=== PATIENT | male | born 1985 ===

== ENCOUNTER 2017-10-03 14:17 | Emergency (ER) | payer OTHER ==
[2017-10-03 14:32] VITALS: TEMP 98.8; O2SAT 100
[2017-10-03] MEDS ORDERED: Iohexol 240 (50 ml) PO STA (14:56)
--- NOTE | 2017-10-03 15:04 | ED PDOC ---
HPI: Abdomen Time Seen by Provider: 10/03/17 14:45 Chief Complaint (Nursing): Abdominal Pain Chief Complaint (Provider): abdominal pain History Per: Patient History/Exam Limitations: no limitations Onset/Duration Of Symptoms: Days (2 weeks), Gradual, Persistent Location Of Pain/Discomfort: RLQ (radiating to back and RIGHT groin) Quality Of Discomfort: Dull, Aching, "Pain" Associated Symptoms: Nausea, Loss Of Appetite, Back Pain, Other (gets full easily). denies: Fever, Chills, Vomiting, Diarrhea, Constipation, Urinary Symptoms Exacerbating Factors: Supine, Food (and fluids) Alleviating Factors: None Last Bowel Movement: Yesterday Past Medical History Reviewed: Historical Data, Nursing Documentation, Vital Signs Vital Signs: Last Vital Signs Temp 98.8 F 10/03/17 14:30 Pulse 82 10/03/17 18:25 Resp 14 10/03/17 18:25 BP 128/76 10/03/17 18:25 Pulse Ox 100 10/03/17 19:24 - Medical History PMH: No Chronic Diseases - Surgical History Surgical History: No Surg Hx - Family History Family History: States: Diabetes, Other Other Family History: Father prostate cancer - Social History Current smoker - smoking cessation education provided: No Alcohol: Occasional Drugs: Denies - Immunization History Hx Tetanus Toxoid Vaccination: No - Home Medications Home Medications: Ambulatory Orders Medication Instructions Recorded Cephalexin [Keflex] 500 mg PO BID #14 cap 04/16/16 oxyCODONE/Acetaminophen [Percocet 1 ea PO Q6 PRN #12 tab 04/16/16 5/325 mg Tab] - Allergies Allergies/Adverse Reactions: Allergies Allergy/AdvReac Type Severity Reaction Status Date / Time avocado Allergy RASH Verified 10/03/17 14:29 banana Allergy RASH Verified 10/03/17 14:29 Iodinated Contrast- Oral and Allergy SHORTNESS Verified 10/03/17 19:23 IV Dye OF BREATH shellfish derived Allergy RASH Verified 10/03/17 14:29 shrimp Allergy SWELLING Verified 10/03/17 14:28 Review of Systems ROS Statement: Except As Marked, All Systems Reviewed And Found Negative (and as per HPI) Gastrointestinal: Positive for: Nausea, Abdominal Pain. Negative for: Vomiting , Diarrhea, Constipation, Melena, Hematochezia, Hematemesis, Rectal Pain Genitourinary Male: Negative for: Dysuria, Frequency, Hematuria, Scrotal Pain Musculoskeletal: Positive for: Back Pain Physical Exam - Reviewed Nursing Documentation Reviewed: Yes Vital Signs Reviewed: Yes - Physical Exam Appears: Positive for: Non-toxic, In Acute Distress (mild painful) Head Exam: Positive for: ATRAUMATIC, NORMOCEPHALIC Skin: Positive for: Warm, Dry Eye Exam: Positive for: EOMI, PERRL ENT: Positive for: Pharynx Is (clear), Other (mucus membranes moist) Neck: Positive for: Painless ROM, Supple Cardiovascular/Chest: Positive for: Regular Rate, Rhythm. Negative for: Murmur Respiratory: Positive for: Normal Breath Sounds. Negative for: Respiratory Distress Gastrointestinal/Abdominal: Positive for: Bowel Sounds (hypoactive), Soft, Tenderness (suprapubic and RLQ). Negative for: Mass, Distended, Guarding, Rebound Back: Positive for: Normal Inspection. Negative for: L CVA Tenderness, R CVA Tenderness, Decreased ROM Extremity: Positive for: Normal ROM. Negative for: Deformity Lymphatic: Negative for: Adenopathy Neurologic/Psych: Positive for: Alert. Negative for: Motor/Sensory Deficits - Laboratory Results Result Diagrams: 10/03/17 16:07 10/03/17 16:07 - ECG O2 Sat by Pulse Oximetry: 100 - Progress ED Course And Treament: No clinically significant lab abnormalities Accession No. : [id number] Patient Name / ID : ALISHA MCKINNEY / [id number] Exam Date : 10/03/2017 18:11:15 ( Approved ) Study Comment : Sex / Age : M / 32Y Creator : Scotty Barger MD Dictator : Scotty Barger MD Cook Manager : Entertainment Manager : Scotty Barger MD Approver2 : Report Date : 10/03/2017 18:50:48 My Comment : Date of service: 10/03/2017 PROCEDURE: CT Abdomen and Pelvis with contrast HISTORY: RLQ pain COMPARISON: None. TECHNIQUE: Contrast dose: 95 cc Omnipaque 300 Radiation dose: Total exam DLP = 931.48 mGy-cm. This CT exam was performed using one or more of the following dose reduction techniques: Automated exposure control, adjustment of the mA and/or kV according to patient size, and/or use of iterative reconstruction technique. FINDINGS: LOWER THORAX: Unremarkable. LIVER: Unremarkable. No gross lesion or ductal dilatation. GALLBLADDER AND BILE DUCTS: Unremarkable. PANCREAS: Unremarkable. No gross lesion or ductal dilatation. SPLEEN: Unremarkable. ADRENALS: Unremarkable. No mass. KIDNEYS AND URETERS: Unremarkable. No hydronephrosis. No solid mass. VASCULATURE: Unremarkable. No aortic aneurysm. BOWEL: Constipation without fecal impaction or obstruction. APPENDIX: Normal appendix. PERITONEUM: Unremarkable. No free fluid. No free air. LYMPH NODES: Unremarkable. No enlarged lymph nodes. BLADDER: Unremarkable. REPRODUCTIVE: Unremarkable. BONES: No acute fracture. OTHER FINDINGS: None. IMPRESSION: No significant or acute findings to account for/ related to the clinical presentation. Additional benign and/or incidental findings described above. On reevaluation pt with no new symptoms. DW pt findings and plan of care. Advised f/u PMD and GI as well. Disposition - Clinical Impression Clinical Impression: Abdominal pain Counseled Patient/Family Regarding: Studies Performed, Diagnosis, Need For Followup - Disposition Referrals: [facility] [Outside] (PLEASE FOLLOW UP AT CLINIC FOR REEVALUATION AND REFERRAL TO THE GI CLINIC WELL. CALL TOMORROW TO SETUP APPOINTMENT BY THE END OF THE WEEK) Disposition: Routine/Home Disposition Time: 19:24 Condition: STABLE Additional Instructions: BLAND DIET WITH PLENTY OF HYDRATING FLUIDS AND REST FOLLOW UP WITH CLINIC BY THE END OF THE WEEK Instructions: Acute Abdomen (Belly Pain)
[2017-10-03] MEDS ORDERED: Iohexol 240 (50 ml) ONE (15:11)
[2017-10-03] MEDS ORDERED: Sodium Chloride 0.9% 1,000 ML IV STA ×2 (15:14→18:33)
[2017-10-03 16:13] LABS: BASO % 0.5 % (0.0-2.0); EOS # 0.1 K/uL (0.0-0.7); EOS % 2.1 % (0.0-4.0); HEMOGLOBIN 14.9 g/dL (12.0-18.0); LYMPH # 2.1 K/uL (1.0-4.3); MEAN CORPUSCULAR HEMOGLOBIN 31.5 pg (27.0-31.0); MEAN CORPUSCULAR HGB CONC 34.2 g/dL (33.0-37.0); MEAN PLATELET VOLUME 9.3 fl (7.2-11.7); MONO # 0.6 K/uL (0.0-0.8); MONO % 7.8 % (0.0-10.0); NEUT # 4.4 K/uL (1.8-7.0); NEUT % 60.6 % (50.0-75.0); RBC 4.72 Mil/uL (4.40-5.90); RED CELL DISTRIBUTION WIDTH 12.5 % (11.5-14.5); WHITE BLOOD COUNT 7.3 K/uL (4.8-10.8)
[2017-10-03 16:15] LABS: PROTHROMBIN TIME 11.2 Seconds (9.8-13.1)
[2017-10-03 16:22] LABS: ALB/GLOB RATIO 1.3 (1.0-2.1); ALBUMIN 4.3 g/dL (3.5-5.0); ALT/SGPT 40 U/L (21-72); AST/SGOT 29 U/L (17-59); BLOOD UREA NITROGEN 23 mg/dl (9-20); CALCIUM 9.2 mg/dL (8.4-10.2); GFR NON-AFRICAN AMERICAN > 60; LIPASE 78 U/L (23-300)
[2017-10-03] MEDS ORDERED: Iohexol 300 100 ML IJ ONE (17:09)
[2017-10-03] MEDS ORDERED: Sodium Chloride 0.9% 50 ML IV ONE (17:10)
[2017-10-03 17:19] LABS: SQUAMOUS EPITHIAL 1 /hpf (0-5); URINE BILIRUBIN NEGATIVE (NEGATIVE); URINE BLOOD NEGATIVE (NEGATIVE); URINE CLARITY CLEAR (Clear); URINE COLOR YELLOW (YELLOW); URINE GLUCOSE (UA) NEG (Normal); URINE LEUKOCYTE ESTERASE NEG Leu/uL (Negative); URINE PROTEIN NEGATIVE (NEGATIVE); URINE UROBILINOGEN 0.2-1.0 mg/dL (0.2-1.0)
[2017-10-03] MEDS ORDERED: DiphenhydrAMINE 50 mg/ml Inj IVP STA (18:19)
--- NOTE | 2017-10-03 18:52 | CT ---
Date of service: 10/03/2017 PROCEDURE: CT Abdomen and Pelvis with contrast HISTORY: RLQ pain COMPARISON: None. TECHNIQUE: Contrast dose: 95 cc Omnipaque 300 Radiation dose: Total exam DLP = 931.48 mGy-cm. This CT exam was performed using one or more of the following dose reduction techniques: Automated exposure control, adjustment of the mA and/or kV according to patient size, and/or use of iterative reconstruction technique. FINDINGS: LOWER THORAX: Unremarkable. LIVER: Unremarkable. No gross lesion or ductal dilatation. GALLBLADDER AND BILE DUCTS: Unremarkable. PANCREAS: Unremarkable. No gross lesion or ductal dilatation. SPLEEN: Unremarkable. ADRENALS: Unremarkable. No mass. KIDNEYS AND URETERS: Unremarkable. No hydronephrosis. No solid mass. VASCULATURE: Unremarkable. No aortic aneurysm. BOWEL: Constipation without fecal impaction or obstruction. APPENDIX: Normal appendix. PERITONEUM: Unremarkable. No free fluid. No free air. LYMPH NODES: Unremarkable. No enlarged lymph nodes. BLADDER: Unremarkable. REPRODUCTIVE: Unremarkable. BONES: No acute fracture. OTHER FINDINGS: None. IMPRESSION: No significant or acute findings to account for/ related to the clinical presentation. Additional benign and/or incidental findings described above.
[2017-10-03] MEDS ORDERED: DiphenhydrAMINE 50 mg/ml Inj ONE (19:32)
[2017-10-03 19:42] VITALS: RESP 14
[2017-10-03 20:55] VITALS: BP 117/83; PULSE 79
== END 2017-10-03 20:50 | disposition home or self-care (01) ==
LOC: H.ER 14:17
DX: R10.31 Right lower quadrant pain (principal)
CPT/HCPCS: 74177; 80053; 81003; 83690; 85025; 85610; 85730; 96374; 99284; J1200; J7030; Q9966; Q9967

== ENCOUNTER 2017-10-26 08:32 | Emergency (ER) | payer OTHER ==
[2017-10-26 08:35] VITALS: BMI 33.7
[2017-10-26 08:37] VITALS: BP 139/90; PULSE 81; RESP 17; TEMP 98.9; O2SAT 98
[2017-10-26] MEDS ORDERED: Sodium Chloride 0.9% 1,000 ML IV STA (09:30)
[2017-10-26] MEDS ORDERED: Lidocaine 5% Patch TD STA (09:31)
--- NOTE | 2017-10-26 09:51 | ED PDOC ---
HPI: General Adult Time Seen by Provider: 10/26/17 09:25 Chief Complaint (Nursing): Upper Extremity Problem/Injury Chief Complaint (Provider): neck pain History Per: Patient History/Exam Limitations: no limitations Onset/Duration Of Symptoms: Hrs (2), Sudden Onset Current Symptoms Are (Timing): Still Present Severity: Severe Additional Complaint(s): 32yo male c/o R neck pain since this morning upon awakening. Pain sharp, worse with movement, extends to R trapezius and denies pain to arm hand or back. Denies injury or trauma. States happened several years ago whereby slept on neck wrong and had "pinched nerve". No medications taken. Denies headache, fever , drug use or difficulty ambulating. Past Medical History Reviewed: Historical Data, Nursing Documentation, Vital Signs Vital Signs: Last Vital Signs Temp 98.9 F 10/26/17 08:53 Pulse 81 10/26/17 08:53 Resp 17 10/26/17 08:53 BP 139/90 10/26/17 08:53 Pulse Ox 98 10/28/17 15:47 - Medical History PMH: No Chronic Diseases - Surgical History Surgical History: No Surg Hx - Family History Family History: States: Diabetes - Social History Current smoker - smoking cessation education provided: No Alcohol: Social Drugs: Denies - Immunization History Hx Tetanus Toxoid Vaccination: No - Home Medications Home Medications: Ambulatory Orders Medication Instructions Recorded Cephalexin [Keflex] 500 mg PO BID #14 cap 04/16/16 oxyCODONE/Acetaminophen [Percocet 1 ea PO Q6 PRN #12 tab 04/16/16 5/325 mg Tab] Cyclobenzaprine [Cyclobenzaprine 10 mg PO Q8 PRN #9 tab 10/26/17 HCl] Ibuprofen [Motrin Tab] 600 mg PO Q6 PRN #15 tab 10/26/17 oxyCODONE/Acetaminophen [Percocet 1 ea PO Q8 PRN #6 tab 10/26/17 5/325 mg Tab] - Allergies Allergies/Adverse Reactions: Allergies Allergy/AdvReac Type Severity Reaction Status Date / Time avocado Allergy RASH Verified 10/03/17 14:29 banana Allergy RASH Verified 10/03/17 14:29 Iodinated Contrast- Oral and Allergy SHORTNESS Verified 10/03/17 19:23 IV Dye OF BREATH shellfish derived Allergy RASH Verified 10/03/17 14:29 shrimp Allergy SWELLING Verified 10/03/17 14:28 Review of Systems Constitutional: Negative for: Fever Eyes: Negative for: Vision Change ENT: Negative for: Nose Discharge, Throat Pain Cardiovascular: Negative for: Chest Pain Gastrointestinal: Negative for: Abdominal Pain Genitourinary Male: Negative for: Dysuria Musculoskeletal: Positive for: Neck Pain, Shoulder Pain. Negative for: Arm Pain , Back Pain Skin: Negative for: Rash, Lesions, Jaundice Neurological: Negative for: Weakness, Numbness Psych: Negative for: Anxiety - Laboratory Results Result Diagrams: 10/26/17 10:27 10/26/17 10:27 - ECG O2 Sat by Pulse Oximetry: 98 Medical Decision Making Medical Decision Making: Time: 09:25 Initial Impression: Neck pain Initial Plan: --Cervical spine w/o contrast [CT] --BMP --CBC w/ differential --Lidoderm 1 ea TD --Sodium Chloride 1,000 ml IV 1,000 mls/hr --Toradol 30 mg IV --Tylenol 325 mg tab 650 mg PO --Valium 5 mg PO --Reevaluation 12:[address] FINDINGS: VERTEBRAE: The vertebral bodies are maintained in height. Normal alignment is maintained. There is mild straightening of the normal lordotic curvature indicating possible muscular spasm. The atlantoaxial articulation and odontoid process are intact. DISCS/SPINAL CANAL/NEURAL FORAMINA: No significant central canal or neural foraminal stenosis. Discs heights are grossly preserved. PARASPINAL SOFT TISSUES: Unremarkable. OTHER FINDINGS: None. IMPRESSION: No fracture/dislocation. Possible muscular spasm. 13:30 -Patient reports improvement. Neck ROM improved, no weakness or numbness. Patient was discharged home with prescription for analgesics and muscle relaxants. Patient was advised to follow up with clinic and instructed not to contrive or operate machinery under medication. Disposition - Clinical Impression Clinical Impression: Neck pain - Patient ED Disposition Is Patient to be Admitted: No Counseled Patient/Family Regarding: Studies Performed, Diagnosis, Need For Followup - Disposition Referrals: [facility] [Outside] Disposition: Routine/Home Disposition Time: 13:30 Condition: STABLE Additional Instructions: Use warm compress to neck 4x daily. Gentle range of motion. Avoid heavy lifting x2 weeks. Return to ER for any weakness, numbness or worsening pain. FAYE BRITO, thank you for letting us take care of you today. Your provider was Camilo Sorensen III, DO and you were treated for NECK PAIN. The emergency medical care you received today was directed at your acute symptoms. If you were prescribed any medication, please fill it and take as directed. It may take several days for your symptoms to resolve. Return to the Emergency Department if your symptoms worsen, do not improve, or if you have any other problems. Please contact your doctor or call one of the physicians/clinics you have been referred to that are listed on the Patient Visit Information form that is included in your discharge packet. Bring any paperwork you were given at discharge with you along with any medications you are taking to your follow up visit. Our treatment cannot replace ongoing medical care by a primary care provider outside of the emergency department. Thank you for allowing the [facility] team to be part of your care today. Prescriptions: Cyclobenzaprine [Cyclobenzaprine HCl] 10 mg PO Q8 PRN #9 tab PRN Reason: Muscle Spasm Ibuprofen [Motrin Tab] 600 mg PO Q6 PRN #15 tab PRN Reason: Pain, Moderate (4-7) oxyCODONE/Acetaminophen [Percocet 5/325 mg Tab] 1 ea PO Q8 PRN #6 tab PRN Reason: Pain, Severe (8-10) Instructions: Neck Pain Forms: [employer] ([place]), [facility] ED School/Work Excuse
[2017-10-26 10:34] LABS: BASO % 0.6 % (0.0-2.0); EOS # 0.3 K/uL (0.0-0.7); EOS % 4.3 % (0.0-4.0); HEMOGLOBIN 15.1 g/dL (12.0-18.0); LYMPH # 1.8 K/uL (1.0-4.3); LYMPH % 27.1 % (20.0-40.0); MEAN CELL VOLUME 91.9 fl (80.0-94.0); MEAN CORPUSCULAR HEMOGLOBIN 31.7 pg (27.0-31.0); MEAN CORPUSCULAR HGB CONC 34.5 g/dL (33.0-37.0); MEAN PLATELET VOLUME 9.4 fl (7.2-11.7); MONO # 0.6 K/uL (0.0-0.8); MONO % 9.2 % (0.0-10.0); NEUT # 3.8 K/uL (1.8-7.0); NEUT % 58.8 % (50.0-75.0); NRBC % 0.1 % (0.0-0.0); RBC 4.77 Mil/uL (4.40-5.90); RED CELL DISTRIBUTION WIDTH 12.3 % (11.5-14.5); WHITE BLOOD COUNT 6.4 K/uL (4.8-10.8)
[2017-10-26] MEDS ORDERED: Lidocaine 5% Patch TD ONE (10:35)
[2017-10-26 10:49] LABS: BLOOD UREA NITROGEN 30 mg/dl (9-20); GFR NON-AFRICAN AMERICAN > 60
--- NOTE | 2017-10-26 12:25 | CT ---
Date of service: 10/26/2017 PROCEDURE: CT Cervical Spine without contrast HISTORY: R neck pain immobility COMPARISON: None available. TECHNIQUE: Axial computed tomography images were obtained of the cervical spine without the use of intravenous contrast. Coronal and sagittal reformatted images were created and reviewed. Radiation dose: Total exam DLP = 454.47 mGy-cm. This CT exam was performed using one or more of the following dose reduction techniques: Automated exposure control, adjustment of the mA and/or kV according to patient size, and/or use of iterative reconstruction technique. FINDINGS: VERTEBRAE: The vertebral bodies are maintained in height. Normal alignment is maintained. There is mild straightening of the normal lordotic curvature indicating possible muscular spasm. The atlantoaxial articulation and odontoid process are intact. DISCS/SPINAL CANAL/NEURAL FORAMINA: No significant central canal or neural foraminal stenosis. Discs heights are grossly preserved. PARASPINAL SOFT TISSUES: Unremarkable. OTHER FINDINGS: None. IMPRESSION: No fracture/dislocation. Possible muscular spasm.
== END 2017-10-26 13:40 | disposition home or self-care (01) ==
LOC: H.ER 08:32
DX: M54.2 Cervicalgia (principal)
CPT/HCPCS: 72125; 80048; 85025; 96360; 99283; J1885; J7030